=== PATIENT | male | born 1985 | race Caucasian/White ===

== ENCOUNTER 2017-07-26 10:16 | Day surgery (SDC) | payer OTHER ==
[~2017-07-26 10:16] MED LIST: Buffered Lidocaine 0.9% SYRIN* 5 ML/SYR SYRINGE INTRADERM ONE; Dexamethasone IV* 4 MG/ML 1 ML (4 MG) IV SLOW PU ONE; Famotidine IV* 10 MG/ML 2 ML (20 mg) IV ONE
[2017-07-26] MEDS ORDERED: Famotidine IV* 10 MG/ML 2 ML (20 mg) ONE (10:37)
[2017-07-26] MEDS ORDERED: Dexamethasone IV* 4 MG/ML 1 ML (4 MG) ONE (10:37)
[2017-07-26] MEDS ORDERED: ceFAZolin 2 GM (*##) 2 GM/100 ML BAG USE CEFA2SOL IVPB ONE (10:38)
[2017-07-26] MEDS ORDERED: Midazolam* 1 MG/ML 5 ML VIAL (5 MG) ONE (12:08)
[2017-07-26] MEDS ORDERED: fentaNYL* 50 MCG/ML 5 ML VIAL (250 MCG VIAL) ONE (12:08)
[2017-07-26] MEDS ORDERED: Ondansetron INJ* 2 MG/ML VIAL ONE (12:10)
[2017-07-26] MEDS ORDERED: Lidocaine 2% PF * 5 ML VIAL ONE (12:10)
[2017-07-26] MEDS ORDERED: Ketorolac INJ* 30 MG/ML 1 ML VIAL ONE (12:10)
[2017-07-26] MEDS ORDERED: Propofol* 10 MG/ML 20 ML BTL IV PUSH ONE (12:10)
[2017-07-26] MEDS ORDERED: Bupivacaine 0.25% SDV* 30 ML ONE (12:34)
[2017-07-26] MEDS ORDERED: fentaNYL* 50 MCG/ML 2 ML VIAL (100 MCG VIAL) ONE (13:19)
[2017-07-26] MEDS ORDERED: Naloxone* 0.4 MG/ML 1 ML VIAL IV PRN (14:44)
[2017-07-26] MEDS ORDERED: Ondansetron INJ* 2 MG/ML VIAL IV PRN (14:44)
[2017-07-26] MEDS ORDERED: oxyCODONE/Acetamin 5/325 MG* TAB PO PRN (14:44)
[2017-07-26 15:30] VITALS: BP 142/77
--- NOTE | 2017-07-27 15:28 | RAD ---
INDICATION: Right thumb, history of ulnar collateral ligament tear COMPARISONS: MRI dated July 24, 2017 TECHNIQUE: Fluoroscopy was provided for a surgical procedure. Total fluoroscopy time is: 7 seconds FINDINGS: There is post surgical change to the proximal phalanx of the first digit. IMPRESSION: FLUOROSCOPY WAS PROVIDED FOR A SURGICAL PROCEDURE CPT II Codes: 6045F
--- NOTE | 2017-08-07 16:28 | OP ---
DATE OF OPERATION: 07/26/17 - [facility] DATE OF : 89 SURGEON: Latrell Tirado MD ELECTRONICS TEACHER: OSWALDO Portillo. An accounting assistant was needed for the procedure to aid in positioning of the arm and retraction. ANESTHESIOLOGIST: Terry Moran MD ANESTHESIA: General. PRE-OPERATIVE DIAGNOSIS: Right thumb metacarpophalangeal joint complete ulnar collateral ligament rupture. POST-OPERATIVE DIAGNOSIS: Right thumb metacarpophalangeal joint complete ulnar collateral ligament rupture. OPERATIVE PROCEDURE: Repair of right thumb metacarpophalangeal joint ulnar collateral ligament with DePuy Mitek suture anchors. INDICATIONS: Pb had a complete ulnar collateral ligament rupture. He was seen initially when he was out skiing in [place]. He was placed in a splint. He followed with my office regarding the MRI scan, which confirmed the rupture was indeed a complete rupture. On exam, he had instability. I talked to him about his options including treatment in a cast versus surgical repair. He wanted to proceed with surgical repair in order to minimize any chance of chronic instability at the joint. He understood the risks and benefits and wanted to proceed with surgery. ESTIMATED BLOOD LOSS: 2 mL. COMPLICATIONS: None. FINDINGS: As expected. DESCRIPTION OF PROCEDURE: Pb was seen in the preoperative holding area. The correct site, side and procedure were identified. We came back to the operating room and the arm was prepped and draped in the usual fashion. A time- out was performed. I exsanguinated the arm with the Esmarch and the tourniquet was inflated to 250 mmHg. A curvilinear incision was made over the ulnar aspect of the MCP joint. Dissection was carried down, full thickness flaps were raised off the adductor aponeurosis taking care to preserve the traversing sensory nerves. The adductor aponeurosis was incised longitudinally and retracted dorsally and volarly. The tear was immediately noted. There was hematoma that was persistent. The tear was noted to be retracted. I used the [place] blade a small curette to freshen up the footprint of the ulnar collateral ligament. I then placed one micro Mitek followed by a mini Mitek suture anchor in the footprint of the ulnar collateral ligament. The suture tails were whip stitched up into the ulnar collateral ligament and then the post stitch was sewn through the ligament and pulled with tension as the ligament was sewn back down to the bone. I did have to take some time before this to release all the adhesions and get the ligament mobilized back, so that we were opposed to the bone. I then took 4-0 Ethibond suture and augmented the repair by sewing the ligament to the adjacent local tissue. The ligament was sewn back to the volar plate with the 4-0 Ethibond suture. At this point, everything was very stable on exam. The thumb was now very stable both with regards to ulnar and radial collateral ligaments at both 0 and 30 degrees of flexion. The wound was irrigated out. The adductor aponeurosis was reapproximated with 4-0 Vicryl suture. The skin was closed with 4-0 nylon suture. Marcaine was infiltrated into the operative area. The wound was dressed with Xeroform, 4x4's, sterile Webril and a thumb spica splint was placed out to the tip of the thumb. Tourniquet was deflated. The hand pinked up immediately. He was taken to recovery room in stable condition. [id number]/[facility] #: [id number] RENÉE
== END 2017-07-26 15:28 | disposition home or self-care (01) ==
LOC: OREAST 10:16
PROVIDERS: ATTEND Orthopaedic Surgery Hand Surgery
DX: S53.31XA Traumatic rupture of right ulnar collateral ligament, initial encounter (principal); W00.0XXA Fall on same level due to ice and snow, initial encounter; Y93.23 Activity, snow (alpine) (downhill) skiing, snowboarding, sledding, tobogganing and snow tubing
CPT/HCPCS: 76000; C1713; J1100; J1885; J2250; J2405; J2704; J3010